=== PATIENT | male | born 1945 | race Caucasian/White ===

== ENCOUNTER 2021-03-18 08:46 | Outpatient (CLI) | payer MEDICARE | END 2021-03-18 08:47 | disposition home or self-care (01) | LOC: CSHMRI 08:46 | PROVIDERS: ATTEND Surgery | DX: M54.2 Cervicalgia (principal); G95.9 Disease of spinal cord, unspecified; R27.0 Ataxia, unspecified; M47.812 Spondylosis without myelopathy or radiculopathy, cervical region; M47.814 Spondylosis without myelopathy or radiculopathy, thoracic region | CPT/HCPCS: 72156; 72157; 72158 ==

== ENCOUNTER 2021-05-31 10:26 | Outpatient (CLI) | payer MEDICARE | END 2021-05-31 10:27 | disposition home or self-care (01) | LOC: CSHMRI 10:26 | PROVIDERS: ATTEND Radiology Radiation Oncology | DX: C71.9 Malignant neoplasm of brain, unspecified (principal); Z98.890 Other specified postprocedural states; Z92.21 Personal history of antineoplastic chemotherapy; Z92.3 Personal history of irradiation; G93.9 Disorder of brain, unspecified | CPT/HCPCS: 70553 ==